=== PATIENT | male | born 1950 | race African-American/Black ===

== ENCOUNTER 2018-03-25 12:29 | Inpatient (IN) | payer MEDICARE, MEDICAID ==
[~2018-03-25] VITALS: Ht 175.3 cm; Wt 57.2 kg
[~2018-03-25 12:29] MED LIST: ASPI-986 PO; NITR0.4T49 SL
[2018-03-25] MEDS ORDERED: NITROGLYCERIN 0.4MG TABLET SL SL PRN (13:15)
[2018-03-25] MEDS ORDERED: ASPIRIN 81MG TABLET PO ONE (13:15)
[2018-03-25 14:44] LABS: BASOPHILS % 1.3 % (0.0-2.0); EOSINOPHILS % 5.8 % (0.0-5.0); HEMATOCRIT. 42.2 % (42.0-52.0); HEMOGLOBIN. 14.2 g/dL (14.0-18.0); LYMPHOCYTES % 31.8 % (20.0-50.0); MEAN CORPUSCULAR HEMOGLOBIN 31.5 pg (28.0-32.0); MEAN CORPUSCULAR VOLUME 93.6 fL (80.0-94.0); MEAN PLATELET VOLUME 9.4 fl (7.4-10.4); NEUTROPHILS % 51.1 % (40.0-76.0); PLATELET 227 x1000/uL (130-400); RED BLOOD CELL COUNT 4.51 mill/uL (4.7-6.1); RED CELL DISTRIBUTION WIDTH 13.3 % (11.6-14.6)
[2018-03-25 14:55] LABS: CHLORIDE 108 mEq/L (98-107); D-DIMER 0.21 mg/L FEU (<0.50); ETHANOL BLOOD 49 mg/dL; PARTIAL THROMBOPLASTIN TIME 25.7 sec (23.4-31.0); PROTHROMBIN TIME 9.7 sec (9.1-11.1)
[2018-03-25 15:10] LABS: *AMPHETAMINES SCREEN URINE NEGATIVE (NEGATIVE); *BARBITURATES SCREEN URINE NEGATIVE (NEGATIVE); *BENZODIAZEPINES SCREEN URINE NEGATIVE (NEGATIVE); *COCAINE SCREEN URINE PRESUMTIVE POSITIVE (NEGATIVE)
[2018-03-25 15:11] LABS: CANNABINOID URINE SCREEN NEGATIVE (NEGATIVE); METHADONE URINE SCREEN NEGATIVE (NEGATIVE); OPIATES URINE SCREEN NEGATIVE (NEGATIVE); PHENCYCLIDINE URINE SCREEN NEGATIVE (NEGATIVE)
[2018-03-25 16:28] LABS: CREATINE KINASE MB FRACTION 3.9 ng/mL (0.5-3.6)
[2018-03-25] MEDS ORDERED: CLONIDINE 0.1MG TABLET PO PRN (16:30)
[2018-03-25] MEDS ORDERED: ONDANSETRON HCL 4MG/2ML INJ IV PRN (20:15)
[2018-03-25] MEDS ORDERED: ACETAMINOPHEN 325MG TABLET PO PRN (20:15)
[2018-03-25 23:00] VITALS: BP 141/86
[2018-03-26] VITALS: BP 141/86
[2018-03-26 04:00] VITALS: BP 140/89
[2018-03-26] MEDS ORDERED: FOLIC ACID 1 MG, THIAMINE HCL 100 MG, MVI, ADULT NO.1 10 ML in DEXTROSE 5% WATER 1,000 ML IV NR ×4 (04:00)
[2018-03-26] MEDS: CHLORDIAZEPOXIDE 25MG CAPSULE PO SCH ×3 (05:18→21:13)
[2018-03-26] MEDS ORDERED: NITROGLYCERIN OINT 1GM/INCH UDPKT TD SCH (06:00)
[2018-03-26 06:30] LABS: BASOPHILS % 1.1 % (0.0-2.0); EOSINOPHILS % 11.5 % (0.0-5.0); HEMATOCRIT. 43.4 % (42.0-52.0); HEMOGLOBIN. 14.6 g/dL (14.0-18.0); LYMPHOCYTES % 30.3 % (20.0-50.0); MEAN CORPUSCULAR HEMOGLOBIN 31.5 pg (28.0-32.0); MEAN CORPUSCULAR VOLUME 93.6 fL (80.0-94.0); MEAN PLATELET VOLUME 10.1 fl (7.4-10.4); MONOCYTES % 14.8 % (2.0-8.0); NEUTROPHILS % 42.3 % (40.0-76.0); PLATELET 224 x1000/uL (130-400); RED BLOOD CELL COUNT 4.64 mill/uL (4.7-6.1); RED CELL DISTRIBUTION WIDTH 13.5 % (11.6-14.6)
[2018-03-26 06:47] LABS: CHLORIDE 105 mEq/L (98-107)
[2018-03-26 07:05] LABS: CREATINE KINASE 150 IU/L (39-308); CREATINE KINASE MB FRACTION 2.4 ng/mL (0.5-3.6); HDL CHOLESTEROL 54 mg/dL (40-59); LDL CHOLESTEROL 69 mg/dL (5-100)
[2018-03-26 08:00] VITALS: BP 120/71
[2018-03-26 08:31] LABS: CLARITY URINE CLEAR (CLEAR); COLOR URINE YELLOW (YELLOW); KETONES URINE 1+ (NEGATIVE); LEUKOCYTE ESTERASE URINE NEGATIVE (NEGATIVE); NITRITE URINE NEGATIVE (NEGATIVE); OCCULT BLOOD URINE NEGATIVE (NEGATIVE); PH URINE 5.5 (4.5-8.0); PROTEIN URINE NEGATIVE (NEGATIVE); SPECIFIC GRAVITY URINE 1.027 (1.005-1.030); UROBILINOGEN URINE 0.2 E.U./dL (0.2-1.0)
[2018-03-26] MEDS: NICOTINE 21MG PATCH TD SCH (09:00)
[2018-03-26] MEDS: ASPIRIN 81MG TABLET PO SCH (09:05)
[2018-03-26] MEDS: AMLODIPINE 5MG TABLET PO SCH ×2 (09:06→21:00)
[2018-03-26 12:00] VITALS: BP 131/82
[2018-03-26] MEDS: LOSARTAN POTASSIUM 25 MG TABLET PO SCH (13:03)
[2018-03-26 16:00] VITALS: BP 114/70
[2018-03-26 20:00] VITALS: BP 113/63
[2018-03-26] MEDS ORDERED: ATORVASTATIN CALCIUM 40MG TABLET PO SCH (21:00)
[2018-03-27] VITALS: BP 109/61
[2018-03-27 04:00] VITALS: BP 124/64
[2018-03-27] MEDS: CHLORDIAZEPOXIDE 25MG CAPSULE PO SCH ×2 (05:18→14:04)
[2018-03-27 07:00] LABS: BASOPHILS % 0.8 % (0.0-2.0); EOSINOPHILS % 9.1 % (0.0-5.0); HEMATOCRIT. 44.7 % (42.0-52.0); HEMOGLOBIN. 15.1 g/dL (14.0-18.0); MEAN CORPUSCULAR HEMOGLOBIN 31.6 pg (28.0-32.0); MEAN CORPUSCULAR VOLUME 93.3 fL (80.0-94.0); MEAN PLATELET VOLUME 10.1 fl (7.4-10.4); MONOCYTES % 13.4 % (2.0-8.0); NEUTROPHILS % 44.7 % (40.0-76.0); PLATELET 220 x1000/uL (130-400); RED BLOOD CELL COUNT 4.79 mill/uL (4.7-6.1); RED CELL DISTRIBUTION WIDTH 13.4 % (11.6-14.6)
[2018-03-27 07:22] LABS: CHLORIDE 104 mEq/L (98-107)
[2018-03-27 08:00] VITALS: BP 95/66
[2018-03-27] MEDS: ASPIRIN 81MG TABLET PO SCH (08:11)
[2018-03-27] MEDS: AMLODIPINE 5MG TABLET PO SCH (08:12)
[2018-03-27] MEDS: LOSARTAN POTASSIUM 25 MG TABLET PO SCH (08:12)
[2018-03-27] MEDS: NICOTINE 21MG PATCH TD SCH (08:12)
[2018-03-27 12:00] VITALS: BP 114/77
[2018-03-27] MEDS ORDERED: AMLO5TAB88 PO (13:50)
[2018-03-27] MEDS ORDERED: ASPI-1160 PO (13:50)
[2018-03-27] MEDS ORDERED: LIP40 PO (13:50)
[2018-03-27] MEDS ORDERED: LOSA25TA3 PO (13:50)
[2018-03-27 14:57] VITALS: BP 114/77
[2018-03-27 16:00] VITALS: BP 124/76
== END 2018-03-27 17:05 | disposition home or self-care (01) | DRG 918 ==
LOC: ER 12:29 → 5WST 15:47 → ENRESERV 21:40
PROVIDERS: ADMIT Internal Medicine; ATTEND Internal Medicine
DX: T40.5X1A Poisoning by cocaine, accidental (unintentional), initial encounter (principal); I50.22 Chronic systolic (congestive) heart failure; I42.9 Cardiomyopathy, unspecified; F14.129 Cocaine abuse with intoxication, unspecified; Y90.2 Blood alcohol level of 40-59 mg/100 ml; E87.8 Other disorders of electrolyte and fluid balance, not elsewhere classified; I73.9 Peripheral vascular disease, unspecified; E78.00 Pure hypercholesterolemia, unspecified; E78.5 Hyperlipidemia, unspecified; R00.0 Tachycardia, unspecified; F17.210 Nicotine dependence, cigarettes, uncomplicated; I11.0 Hypertensive heart disease with heart failure; F10.129 Alcohol abuse with intoxication, unspecified; F19.10 Other psychoactive substance abuse, uncomplicated; I25.10 Atherosclerotic heart disease of native coronary artery without angina pectoris; Z79.82 Long term (current) use of aspirin; Z95.1 Presence of aortocoronary bypass graft; Z79.899 Other long term (current) drug therapy; Z79.4 Long term (current) use of insulin; Z71.6 Tobacco abuse counseling
CPT/HCPCS: 36415; 71045; 80048; 80061; 80305; 82550; 82553; 83735; 83880; 84443; 84484; 85379; 93005; 93306; 99285; G0482; J3411; J3490; J7050; J7070

== ENCOUNTER 2020-09-25 12:32 | Inpatient (IN) | payer MEDICARE, MEDICAID ==
[~2020-09-25] VITALS: Ht 175.3 cm; Wt 64.4 kg
[~2020-09-25 12:32] MED LIST changes: +AMLO5TAB88 PO; +ASPI-1160 PO; -ASPI-986 PO; +LIP40 PO; +LOSA25TA3 PO; -NITR0.4T49 SL
[2020-09-25] MEDS ORDERED: ASPIRIN 325MG EC TABLET PO ONE (13:00)
[2020-09-25] MEDS ORDERED: HYDRALAZINE 20MG/ML VIAL IV ONE (13:00)
[2020-09-25 13:30] LABS: BASOPHILS % 0.5 % (0.0-2.0); EOSINOPHILS % 3.3 % (0.0-5.0); HEMATOCRIT. 42.9 % (42.0-52.0); HEMOGLOBIN. 14.7 g/dL (14.0-18.0); MEAN CORPUSCULAR VOLUME 96.4 fL (80.0-94.0); MEAN PLATELET VOLUME 10.2 fl (7.4-10.4); MONOCYTES % 10.2 % (2.0-8.0); PLATELET 221 x1000/uL (130-400); RED BLOOD CELL COUNT 4.45 mill/uL (4.7-6.1); RED CELL DISTRIBUTION WIDTH 13.7 % (11.6-14.6)
[2020-09-25 13:31] LABS: CHLORIDE 106 mEq/L (98-107)
[2020-09-25] MEDS ORDERED: ACETAMINOPHEN 325MG TABLET PO PRN (15:00)
[2020-09-25] MEDS ORDERED: DIPHENHYDRAMINE 50MG/ML VIAL IV PRN (15:00)
[2020-09-25] MEDS ORDERED: ONDANSETRON HCL 4MG/2ML INJ IV PRN (15:00)
[2020-09-25] MEDS ORDERED: CLONIDINE 0.1MG TABLET PO PRN (15:00)
[2020-09-25] MEDS ORDERED: MORPHINE SULFATE 2 MG/ML CPJ (NOT FOR IM USE) IV PRN (15:00)
[2020-09-25] MEDS ORDERED: IPRATROPIUM/ALBUTEROL 0.5-3(2.5)MG/3ML NEB HHN PRN (15:00)
[2020-09-25] MEDS: CARVEDILOL 6.25 MG TABLET PO SCH ×2 (16:38→21:00)
[2020-09-25 22:15] VITALS: BP 160/104
[2020-09-25 23:39] VITALS: BP 160/104
[2020-09-26] VITALS (7 sets, daily range): BP systolic 117–144; BP diastolic 75–95
[2020-09-26 06:27] LABS: *AMPHETAMINES SCREEN URINE NEGATIVE (NEGATIVE); *BARBITURATES SCREEN URINE NEGATIVE (NEGATIVE); *BENZODIAZEPINES SCREEN URINE NEGATIVE (NEGATIVE); *COCAINE SCREEN URINE PRESUMTIVE POSITIVE (NEGATIVE); METHADONE URINE SCREEN NEGATIVE (NEGATIVE); OPIATES URINE SCREEN NEGATIVE (NEGATIVE)
[2020-09-26 06:28] LABS: CANNABINOID URINE SCREEN NEGATIVE (NEGATIVE); PHENCYCLIDINE URINE SCREEN NEGATIVE (NEGATIVE)
[2020-09-26 06:29] LABS: BASOPHILS % 0.8 % (0.0-2.0); EOSINOPHILS % 4.6 % (0.0-5.0); HEMATOCRIT. 38.2 % (42.0-52.0); HEMOGLOBIN. 12.8 g/dL (14.0-18.0); LYMPHOCYTES % 38.2 % (20.0-50.0); MEAN CORPUSCULAR HEMOGLOBIN 32.2 pg (28.0-32.0); MEAN CORPUSCULAR VOLUME 95.8 fL (80.0-94.0); MEAN PLATELET VOLUME 10.1 fl (7.4-10.4); MONOCYTES % 11.8 % (2.0-8.0); NEUTROPHILS % 44.6 % (40.0-76.0); PLATELET 197 x1000/uL (130-400); RED BLOOD CELL COUNT 3.99 mill/uL (4.7-6.1); RED CELL DISTRIBUTION WIDTH 13.9 % (11.6-14.6)
[2020-09-26 06:43] LABS: CHLORIDE 109 mEq/L (98-107)
[2020-09-26 06:56] LABS: LDL CHOLESTEROL 62 mg/dL (5-100)
[2020-09-26 06:58] LABS: HDL CHOLESTEROL 72 mg/dL (40-59)
[2020-09-26] MEDS: CARVEDILOL 6.25 MG TABLET PO SCH ×2 (10:17→21:16)
[2020-09-26] MEDS: ASPIRIN 81MG EC TABLET PO SCH (10:17)
[2020-09-26] MEDS ORDERED: LISINOPRIL 5MG TABLET PO SCH (12:15)
[2020-09-27 00:22] VITALS: BP 121/81
[2020-09-27 04:00] VITALS: BP 147/86
[2020-09-27 06:33] LABS: EOSINOPHILS % 4.2 % (0.0-5.0); HEMATOCRIT. 40.9 % (42.0-52.0); HEMOGLOBIN. 13.4 g/dL (14.0-18.0); LYMPHOCYTES % 32.4 % (20.0-50.0); MEAN CORPUSCULAR HEMOGLOBIN 31.5 pg (28.0-32.0); MEAN PLATELET VOLUME 10.2 fl (7.4-10.4); MONOCYTES % 10.5 % (2.0-8.0); NEUTROPHILS % 51.9 % (40.0-76.0); PLATELET 198 x1000/uL (130-400); RED BLOOD CELL COUNT 4.26 mill/uL (4.7-6.1); RED CELL DISTRIBUTION WIDTH 13.8 % (11.6-14.6)
[2020-09-27 06:45] LABS: CHLORIDE 109 mEq/L (98-107)
[2020-09-27 08:00] VITALS: BP 120/79
[2020-09-27] MEDS: CARVEDILOL 6.25 MG TABLET PO SCH ×2 (08:29→21:38)
[2020-09-27] MEDS: ASPIRIN 81MG EC TABLET PO SCH (08:29)
[2020-09-27] MEDS: LOSARTAN POTASSIUM 25 MG TABLET PO SCH (08:29)
[2020-09-27 12:00] VITALS: BP 151/98
[2020-09-27 16:30] VITALS: BP 139/97
[2020-09-27 20:00] VITALS: BP 143/91
[2020-09-28] VITALS: BP 118/73
[2020-09-28 04:00] VITALS: BP 137/84
[2020-09-28 08:00] VITALS: BP 126/72
[2020-09-28] MEDS: ASPIRIN 81MG EC TABLET PO SCH (08:09)
[2020-09-28] MEDS: LOSARTAN POTASSIUM 25 MG TABLET PO SCH (08:10)
[2020-09-28] MEDS: CARVEDILOL 6.25 MG TABLET PO SCH (08:11)
[2020-09-28] MEDS ORDERED: COR6 PO (14:42)
[2020-09-28 16:17] VITALS: BP 117/71
== END 2020-09-28 20:19 | disposition home or self-care (01) | DRG 74 ==
LOC: ER 12:32 → 8WST 14:19 → EDBEDREQTM 14:28 → EDBEDREQ 14:28 → ENRESERV 21:23
PROVIDERS: ADMIT Internal Medicine; ATTEND Internal Medicine
DX: G90.9 Disorder of the autonomic nervous system, unspecified (principal); I50.22 Chronic systolic (congestive) heart failure; E78.5 Hyperlipidemia, unspecified; F14.90 Cocaine use, unspecified, uncomplicated; F17.200 Nicotine dependence, unspecified, uncomplicated; I11.0 Hypertensive heart disease with heart failure; I25.10 Atherosclerotic heart disease of native coronary artery without angina pectoris; I25.5 Ischemic cardiomyopathy; S00.03XA Contusion of scalp, initial encounter; Z59.0 Homelessness; Z95.1 Presence of aortocoronary bypass graft; M25.472 Effusion, left ankle; R94.31 Abnormal electrocardiogram [ECG] [EKG]; Z71.51 Drug abuse counseling and surveillance of drug abuser; S09.90XA Unspecified injury of head, initial encounter
CPT/HCPCS: 36415; 71045; 73610; 80048; 80053; 80061; 80305; 83880; 84443; 84484; 85025; 93005; 93306; 93970; 97162; 99285